=== PATIENT | female | born 1955 | race Caucasian/White ===

== ENCOUNTER 2023-02-11 10:40 | Emergency (ER) | payer BC ==
[2023-02-11] MEDS ORDERED: diphenhydrAMINE 50 MG/ML SDV IM ONE (11:03)
[2023-02-11] MEDS ORDERED: predniSONE 20 MG Tab PO ONE (11:04)
[2023-02-11] MEDS ORDERED: methylPREDNISolone Sodium Succinate 125 MG/2 ML SDV IM ONE (12:04)
[2023-02-11 14:40] VITALS: BP 144/55; PULSE 67
== END 2023-02-11 12:55 | disposition home or self-care (01) ==
LOC: FB.ED 10:40
DX: L23.9 Allergic contact dermatitis, unspecified cause (principal); E78.00 Pure hypercholesterolemia, unspecified; I10 Essential (primary) hypertension; E03.9 Hypothyroidism, unspecified; E66.9 Obesity, unspecified; Z79.82 Long term (current) use of aspirin; Z79.899 Other long term (current) drug therapy; Z79.84 Long term (current) use of oral hypoglycemic drugs; Z68.32 Body mass index [BMI] 32.0-32.9, adult
CPT/HCPCS: 96372; 99282; J1200; J2930; J7512